=== PATIENT | male | born 1975 | race Caucasian/White ===

== ENCOUNTER 2016-07-05 19:35 | Emergency (ER) | payer BC ==
[~2016-07-05] VITALS: Ht 188 cm; Wt 97.5 kg
[2016-07-05 19:35] VITALS: BP 147/103; PULSE 79; RESP 18; TEMP 97.7; O2SAT 99
[2016-07-05 21:50] VITALS: BP 138/79; PULSE 75; RESP 19; TEMP 97.8; O2SAT 100
== END 2016-07-05 21:50 | disposition home or self-care (01) ==
LOC: SED 19:35
DX: S20.212A Contusion of left front wall of thorax, initial encounter (principal); K21.9 Gastro-esophageal reflux disease without esophagitis; W50.0XXA Accidental hit or strike by another person, initial encounter; Y93.41 Activity, dancing; Y92.89 Other specified places as the place of occurrence of the external cause; Y99.8 Other external cause status
CPT/HCPCS: 71100; 93005; 99284

== ENCOUNTER 2018-05-10 11:40 | Inpatient (IN) | payer BC, OTHER ==
[~2018-05-10] VITALS: Ht 188 cm; Wt 92.8 kg
--- NOTE | 2018-05-10 11:45 | NUR ---
Patient to ER bed 3 to gown for evaluation. Side rails up. Report given to Zachery HALLMAN.
[2018-05-10 11:47] VITALS: BP_SYST 142
--- NOTE | 2018-05-10 11:50 | NUR ---
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 Pt felt sharp shooting pain and fell down, denies head injury/KO. Pt was able to lay in bed the last 24 hours. Yesterday, pt took Flexeril and aleve with little to no relief. This morning, pt took (2) 5-325 [place], (2) 5 mg Flexeril, (1) 600mg ibuprofen which relieved the back spasms, but shooting pain is still present. Unable to sit up or stand without pain. No other injuries/complaints per pt/noted. Will continue to monitor.
--- NOTE | 2018-05-10 11:57 | NUR ---
ER Dr. Blackwood at bedside examining patient.
--- NOTE | 2018-05-10 12:25 | NUR ---
Pillow provided per pt request.
[2018-05-10] MEDS ORDERED: MORPHINE 4 MG/ML INJ. SYRINGE IM ONE (12:30)
--- NOTE | 2018-05-10 12:49 | NUR ---
Mell HALLMAN adminsitered with 4mg of Morphine to this patient.
--- NOTE | 2018-05-10 13:00 | NUR ---
patient sent to MRI in stable condition.
--- NOTE | 2018-05-10 14:20 | NUR ---
returned from MRI in stable conditions.
--- NOTE | 2018-05-10 14:20 | NUR ---
# 18 gauge angiocath placed to LAC. Use of asceptic technique. Opsite placed over site. Blood return noted. Blood for lab drawn from site. Flushed with 10 cc of normal saline. No evidence of infiltration noted. Patient tolerated well.
[2018-05-10] MEDS ORDERED: MORPHINE 4 MG/ML INJ. SYRINGE IVP ONE (15:00)
--- NOTE | 2018-05-10 15:51 | NUR ---
Patient will be admitted to [facility]. Admitted to Telemetry unit. Will go to room 16a. Belongings list completed. Summary report printed. Report will be given at bedside.
[2018-05-10] MEDS ORDERED: CYCL-10 PO (16:05)
[2018-05-10] MEDS ORDERED: AUG875 (16:05)
--- NOTE | 2018-05-10 16:30 | NUR ---
ADMISSION NOTE Received patient from ER via gurney. Patient admitted with diagnosis of SEVERE BACK PAIN. Patient is awake, alert, oriented X 4. Patient oriented to hospital room, call light, toileting, pain management and safety-teach back done. Patient informed that ANA will be RN nurse and that their room number is 116B. Personal belongings checked and Belongings List documented. Call light within reach.
[2018-05-10 16:39] VITALS: BP_SYST 129
[2018-05-10] MEDS ORDERED: PANT20TA2 PO (16:50)
[2018-05-10] MEDS: CARISOPRODOL 350 MG TABLET PO SCH ×2 (17:12→21:42)
--- NOTE | 2018-05-10 17:12 | NUR ---
PAIN MEDICATION SCHEDULED PAIN MEDICATION ADMINISTERED. PATIENT EDUCATED ON MEDICATION SIDE EFFECTS AND USE OF CALL LIGHT FOR ASSISTANCE. PATIENT VERBALIZED UNDERSTANDING. PATIENT IS VERBALIZED UNDERSTANDING. CALL LIGHT IN REACH, BED IN LOWEST POSITION, AND WILL CONTINUE TO MONITOR.
[2018-05-10] MEDS: HYDROcodone/ACETAMIN 10-325 MG TAB PO SCH (17:13)
--- NOTE | 2018-05-10 19:25 | NUR ---
Bedside report was obtained from day shift nurse. Pt was received lying in bed fully awake, alert and oriented x4. Pt is c/o lower back pain upon movement and requested IV Dilaudid. VSS. Saline lock in LAC is without any signs of infiltration. Fall and safety precautions are in place.
[2018-05-10] MEDS: HYDROmorphone 1 MG INJ. 1 MG/ML AMPUL IVP PRN (19:52)
--- NOTE | 2018-05-10 19:52 | NUR ---
Dilaudid 1mg was given IV per pt's request for c/o 10/10 low back pain. Pt was offered bed alarm, but pt declined. Call light is with pt and bed is in the lowest and locked positions. Pt was instructed to call for assistance as needed and before getting OOB and pt verbalized understanding. Pt stated he is not able to get OOB on his own.
[2018-05-10 20:00] VITALS: BP_SYST 127
--- NOTE | 2018-05-10 20:20 | NUR ---
Pt requested RN to obtain order for laxative from Dr. Zuniga. Pt stated he last had a bowel movement yesterday. Pt also requested for Dr. Zuniga to switch his consultation from Neurology to Neurosurgeon. Pt was informed Dr. Zuniga would be paged.
--- NOTE | 2018-05-10 20:40 | NUR ---
Paged Dr. Zuniga s/w Massiel.
--- NOTE | 2018-05-10 20:50 | NUR ---
Pt was seen and examined by Dr. Zuniga.
[2018-05-10] MEDS ORDERED: DOCUSATE SODIUM 100 MG CAPSULE PO ONE (21:15)
--- NOTE | 2018-05-10 21:30 | NUR ---
Pt was transferred from Telemetry to Med/Surg per Dr. Zuniga's order. Telemetry box was given to Impregnating Helper.
[2018-05-10] MEDS: AMOXICILLIN/CLAVULANATE POTASSIUM 875 MG TABLET PO SCH (21:43)
--- NOTE | 2018-05-10 21:43 | NUR ---
Pt requested for his scheduled Hayden to be given at 2300. No c/o pain at this time.
--- NOTE | 2018-05-10 23:00 | NUR ---
Pt is sleeping without any distress noted. Pt's is sleeping in a recliner at the bedside. Fall and safety precautions are in place.
[2018-05-10 23:30] LABS: BILIRUBIN,URINE NEGATIVE (NEGATIVE); BLOOD, URINE 2+ (NEGATIVE); CLARITY/URINE HAZY (CLEAR); COLOR,URINE YELLOW (YELLOW); GLUCOSE,URINE NEGATIVE (NEGATIVE); KETONES,URINE NEGATIVE (NEGATIVE); LEUKOCYTE ESTERASE ,URINE 3+ (NEGATIVE); NITRITE, URINE NEGATIVE (NEGATIVE); PH,URINE 6.5 (5.0-8.0); PROTEIN URINE 2+ (NEGATIVE); UROBILINOGEN,URINE 0.2 (0.2-1.0)
--- NOTE | 2018-05-10 23:32 | NUR ---
CONSULTATION PAGED/CALLED Reason for Consultation: Herniated Desk Person Who was Notified: Massiel Consulting Physician: Frannie Dennis (air sampling and monitoring DR. Millard) Clay Digger Specialty: Ordering Physician: Efrain
[2018-05-10 23:35] LABS: WBC,URINE 20-50 /HPF (0-3)
[2018-05-10 23:36] LABS: BACTERIA,URINE MODERATE /HPF (None Seen)
[2018-05-11] MEDS: HYDROcodone/ACETAMIN 10-325 MG TAB PO SCH ×5 (00:21→22:47)
--- NOTE | 2018-05-11 01:00 | NUR ---
Pt is sleeping without any respiratory distress noted. Fall and safety precautions are in place. Pt's is sleeping in a recliner at the bedside.
[2018-05-11 01:57] VITALS: BP_SYST 102
--- NOTE | 2018-05-11 02:51 | NUR ---
CONSULT: CONSULT CALLED FOR DR. JAVED GARY I SPOKE WITH ROSEANN JOHNSON REASON FOR CONSULT: SEVERE BACK PAIN REQUESTING CONSULT: DR. COWAN POLISHING PAD MOUNTER PHONE NUMBER: [phone]
--- NOTE | 2018-05-11 03:00 | NUR ---
Pt is sleeping without any respiratory distress noted. Fall and safety precautions in place.
[2018-05-11] MEDS: HYDROmorphone 1 MG INJ. 1 MG/ML AMPUL IVP PRN ×4 (05:24→23:46)
--- NOTE | 2018-05-11 05:24 | NUR ---
Dilaudid 1mg was given IV per pt's request for c/o 8/10 low back pain. Fall and safety precautions are in place.
--- NOTE | 2018-05-11 06:54 | NUR ---
Nutrition Update Blade Scale 18 noted. Pt admitted for severe back pain Diet: regular diet BMI: 26.3 kg/m2 RD to follow per nutrition care standards.
--- NOTE | 2018-05-11 07:15 | NUR ---
Bedside report given to day shift nurse.
[2018-05-11 07:31] LABS: ALBUMIN 3.3 g/dL (3.4-4.8); CALCIUM 8.8 mg/dL (8.4-11.0); CREATININE 1.06 mg/dL (0.55-1.30); POTASSIUM 3.5 mmol/L (3.5-5.1); TOTAL BILIRUBIN 0.5 mg/dL (0.0-1.0)
[2018-05-11 07:55] LABS: HEMATOCRIT 41.4 % (36-54); HEMOGLOBIN 14.1 g/dL (14.0-18.0); RED BLOOD CELL COUNT(AUTO) 4.67 MIL/uL (4.2-6.2); WHITE BLOOD COUNT (AUTO) 6.4 K/uL (4.8-10.8)
[2018-05-11 07:56] LABS: BASOPHILS # (AUTO) 0.1 K/uL (0.0-0.2); BASOPHILS % (AUTO) 0.8 % (0.0-2.0); EOSINOPHILS # (AUTO) 0.4 K/uL (0.0-0.4); EOSINOPHILS % (AUTO) 5.8 % (0.0-4.0); LYMPHOCYTES % (AUTO) 31.4 % (20.5-51.5); MEAN CORPUSCULAR HEMOGLOBIN 30 pg (27-31); MEAN CORPUSCULAR HGB CONC 34 % (32-36); MEAN CORPUSCULAR VOLUME 89 fL (79.0-98.0); MONOCYTES # (AUTO) 0.4 K/uL (0.0-1.0); MONOCYTES % (AUTO) 6.7 % (1.7-9.3); NEUTROPHILS # (AUTO) 3.5 K/uL (1.8-7.7); NEUTROPHILS % (AUTO) 55.3 % (40.0-70.0); PLATELET COUNT (AUTO) 214 K/uL (130-430); RED CELL DISTRIBUTION WIDTH 13.5 % (9.0-15.0)
--- NOTE | 2018-05-11 08:00 | NUR ---
AM note patient resting in bed, a/ox4, denies pain, assessment complete, educated patient on plan of care and call light system and to call for any assistance, he verbalized understanding, bed in lowest position, two side rails up, call light within reach, fall and aspiration precautions in place.
[2018-05-11] MEDS ORDERED: DOCUSATE SODIUM 100 MG CAPSULE PO SCH (09:00)
[2018-05-11] MEDS: PANTOPRAZOLE SODIUM 40 MG TAB PO SCH (09:04)
[2018-05-11] MEDS: CARISOPRODOL 350 MG TABLET PO SCH ×4 (09:04→22:47)
[2018-05-11] MEDS: AMOXICILLIN/CLAVULANATE POTASSIUM 875 MG TABLET PO SCH ×2 (09:04→22:48)
--- NOTE | 2018-05-11 09:05 | NUR ---
Medication/hygiene patient resting in bed, awake, states he has pain and will be okay with taking scheduled medication, educated patient on all morning medications uses and potential side effects, he verbalized understanding and tolerated well, provided with hygiene supplies, patient performed his own oral care, washed his face at this time, provided with fresh ice water, no other needs at this time, bed in lowest position, two side rails up, call light within reach, fall and aspiration precautions in place.
--- NOTE | 2018-05-11 10:39 | NUR ---
Pain medication patient resting in bed, awake, states increased pain level at this time, educated on PRN pain medication uses and potential side effects, he verbalized understanding, IV line is patent and infusing well, no other needs at this time, continuing to monitor, bed in lowest position, two side rails up, call light within reach, fall and aspiration precautions in place.
[2018-05-11 10:43] VITALS: BP_SYST 126
--- NOTE | 2018-05-11 11:23 | NUR ---
HAILEY Mgt: met with patient at bedside, will follow up with discharge needs possible PT outpatient versus Home Health. Patient Agreeable. Has no DME at home. and Father available to help. Neurosurgeon consult pending. Follow up as needed.
--- NOTE | 2018-05-11 11:45 | NUR ---
RN rounds patient resting in bed, visitor at bedside, patient states pain has improved, provided with ice water per his request, no other needs at this time, bed in lowest position, two side rails up, call light within reach, fall and aspiration precautions in place.
[2018-05-11 12:08] VITALS: BP_SYST 118
--- NOTE | 2018-05-11 12:58 | NUR ---
Dr. Zuniga rounds assessed and spoke with patient at bedside, will follow up with any new orders.
[2018-05-11] MEDS ORDERED: CHOLECALCIFEROL (VITAMIN D3) 2,000 UNIT TABLET PO ONE (13:00)
[2018-05-11] MEDS ORDERED: MAGNESIUM OXIDE 400 MG TABLET PO ONE (13:00)
[2018-05-11] MEDS ORDERED: BISACODYL 5 MG TABLET.DR (DULCOLAX) PO PRN (13:15)
[2018-05-11] MEDS: IBUPROFEN 600 MG TABLET PO SCH ×3 (13:22→22:48)
--- NOTE | 2018-05-11 13:22 | NUR ---
Medication patient resting in bed, awake, educated on all medications uses and potential side effects, he verbalized understanding and tolerated well, no other needs at this time, bed in lowest position, two side rails up, call light within reach, fall and aspiration precautions in place, continuing to monitor.
--- NOTE | 2018-05-11 15:30 | NUR ---
RN rounds patient resting in bed, awake, asking for urinal to be emptied, obliged, no other needs at this time, bed in lowest position, two side rails up, call light within reach, fall and aspiration precautions in place.
--- NOTE | 2018-05-11 16:41 | NUR ---
Endorse report to Re HALLMAN.
--- NOTE | 2018-05-11 16:42 | NUR ---
CONSULTATION FOLLOW-UP REASON FOR CONSULTATION:HERNIATED DISC WAS CONSULT CALLED?Y PERSON WHO WAS NOTIFIED:TANIKA CONSULTING PHYSICIAN:JAVED REYES COMPUTER EDUCATION PROFESSOR SPECIALTY:NEURO SURGREON COMPUTER EDUCATION PROFESSOR PHONE NUMBER:[phone] REQUESTING PHYSICIAN:ALEC ASHLEY
--- NOTE | 2018-05-11 18:50 | NUR ---
Note Received pt from previous RN Ej, for continuation of care. Agree with 08am physical assessment. Pt resting in bed with at bedside at this time. No SOB/resp distress noted. Pt's pain manageable at this time. IV in left AC intact and patent at this time. Pt was checked on q1' and PRN for needs and care. No needs noted. Pt sitting up in bed at 30' eating his dinner. No needs noted. Call light within reach.
[2018-05-11 19:57] VITALS: BP_SYST 130
--- NOTE | 2018-05-11 20:00 | NUR ---
Pt was received lying in bed fully awake, alert and oriented x4. No acute distress noted at this time. Saline lock in LAC is without any signs of infiltration. Fall and safety precautions are in place.
--- NOTE | 2018-05-11 22:15 | NUR ---
Pt attempted to have a bowel movement in bedpan, but stated it is uncomfortable. Pt attempted to ambulate to the bathroom with a walker after RN assisted pt out of bed, but pt stated it was difficult to move his legs. [place] was then [place] [facility] [place] had a large brownish formed stool. Pt was then assisted back to bed by RN and call light given to pt.
[2018-05-11] MEDS: DOCUSATE SODIUM 100 MG CAPSULE PO SCH (22:47)
[2018-05-11] MEDS: MAGNESIUM OXIDE 400 MG TABLET PO SCH (22:48)
--- NOTE | 2018-05-11 23:46 | NUR ---
Dilaudid 1mg was given IV for c/o 8/10 low back pain. Call light is with pt and bed is in the lowest and locked positions. Pt was instructed to call for assistance as needed and before getting OOB and pt verbalized understanding. Pt was offered bed alarm, but pt declined.
[2018-05-12] VITALS: BP_SYST 120
--- NOTE | 2018-05-12 01:00 | NUR ---
Pt is sleeping without any respiratory distress noted. Fall and safety precautions are in place.
--- NOTE | 2018-05-12 03:00 | NUR ---
Pt is sleeping without any respiratory distress noted. Fall and safety precautions in place.
--- NOTE | 2018-05-12 05:00 | NUR ---
Pt continues to sleep without any respiratory distress noted. Fall and safety precautions in place.
--- NOTE | 2018-05-12 07:00 | NUR ---
Pt is awake and resting comfortably in bed. Will endorse to day shift nurse.
[2018-05-12 07:50] VITALS: BP_SYST 142
--- NOTE | 2018-05-12 07:50 | NUR ---
INITIAL ROUNDS Received pt AAOx4, no s/s resp distress, c/o mild pain 04/24-noted pt stated he gets pain medications with AM medications. Plan of care for the day reviewed with pt-pt verbalized his understanding. Pt stated he is looking forward to working with physical therapy. Pain management, disease process, skin and safety discussed-teach back done. Call light within reach.
[2018-05-12] MEDS: HYDROcodone/ACETAMIN 10-325 MG TAB PO SCH ×3 (08:42→17:25)
[2018-05-12] MEDS: IBUPROFEN 600 MG TABLET PO SCH ×3 (08:43→17:25)
[2018-05-12] MEDS: CARISOPRODOL 350 MG TABLET PO SCH ×3 (08:44→17:25)
[2018-05-12] MEDS: PANTOPRAZOLE SODIUM 40 MG TAB PO SCH (08:45)
[2018-05-12] MEDS: DOCUSATE SODIUM 100 MG CAPSULE PO SCH (08:45)
[2018-05-12] MEDS: MAGNESIUM OXIDE 400 MG TABLET PO SCH (08:45)
[2018-05-12] MEDS: AMOXICILLIN/CLAVULANATE POTASSIUM 875 MG TABLET PO SCH (08:45)
[2018-05-12] MEDS ORDERED: CHOLECALCIFEROL (VITAMIN D3) 2,000 UNIT TABLET PO SCH (09:00)
[2018-05-12] MEDS: HYDROmorphone 1 MG INJ. 1 MG/ML AMPUL IVP PRN (10:40)
--- NOTE | 2018-05-12 10:43 | NUR ---
ROUNDS/PAIN Pt c/o pain to his back-pt given Dilaudid as ordered. Light turned down low, door closed to promote rest. Pt given fresh pitcher of water per request. Call light within reach.
--- NOTE | 2018-05-12 12:22 | NUR ---
ROUNDS/MED Pt resting quietly in bed with no s/s resp distress, no further c/o pain or discomfort. Needs met, call light within reach.
[2018-05-12 13:26] VITALS: BP_SYST 119
[2018-05-12 14:00] VITALS: BP_SYST 139
--- NOTE | 2018-05-12 14:43 | NUR ---
DANA/ Pt resting quietly in bed with no s/s resp distress, no c/o pain or discomfort. Pt did second round of physical therapy earlier, received order for back brace. Pt seen by Dr. Zuniga, new orders given. Call light within reach.
--- NOTE | 2018-05-12 14:45 | NUR ---
DC Planning: SPEEDYM to ari Chaudhary at [facility] # [phone] [id number] requesting auth for HH with PT and DMEs.
[2018-05-12 15:32] VITALS: BP_SYST 142
[2018-05-12] MEDS ORDERED: HYDR-4274 PO (16:36)
[2018-05-12] MEDS ORDERED: SOM350 PO (16:38)
[2018-05-12] MEDS ORDERED: IBUP-1969 PO (16:39)
[2018-05-12] MEDS ORDERED: DOCU250C14 PO (16:40)
--- NOTE | 2018-05-12 18:00 | NUR ---
PATIENT DISCHARGED Patient given medication reconciliation form and D/C instructions. Exit Care on Back Pain, [place], Soma and Motrin explained and provided. Patient verbalized his understanding. MD discussed with patient the results and treatment provided. Patient in stable condition, ID band removed. IV catheter removed, intact and dressing applied, no active bleeding. Rx of [place], Soma, Motrin, Protonix, Colace given to patient. Patient educated on pain management. All belongings sent with patient. Patient completed and signed the release of information form for release of his MRI. Patient left floor via wheelchair to private vehicle in no distress.
--- NOTE | 2018-05-13 09:00 | NUR ---
DC Planning: Late received dc order written on 05/12 at 1550 to arrange HH and DME. The pt.was d/c home prior to HH/DME set up.
--- NOTE | 2018-05-13 09:47 | NUR ---
Discharge Planning: DCP faxed pt to [facility] p [phone]) order for Home Health with PT and DME. DCP to follow up. Addendum: 05/13/18 at 1208 by Sonia Dorsey DP DONATO received a call from Magda at [facility] p [phone]), HH and DME are being arranged, Magda will call with assigned companies and numbers. DCP to follow up. Addendum: 05/13/18 at 1450 by Sonia Dorsey DP DCJuan spoke to Magda at [facility] p [phone]) HH arranged with [facility] (p [phone]) starting 4/1/19, DME for commode with [employer] ([phone])
--- NOTE | 2018-05-17 14:49 | NUR ---
Discharge Follow Up Phone Call AIRCRAFT MAINTENANCE TECHNICIAN phoned patient, , and left a voicemail message. Patient returned the call. Patient stated he was currently with the home health PT, who recommends that patient attend an outpatient PT facility. Patient requested Dr Zuniga's phone number so the PT could phone him to arrange for that order.AIRCRAFT MAINTENANCE TECHNICIAN provided the number. Patient stated that [facility] began services with an evaluation on 05/16/18. Patient filled his prescriptions and is taking his medication as directed. He does not have a PCP and plans to contact his insurance to obtain a preferred provider list.
== END 2018-05-12 18:00 | disposition home health service (06) | DRG 552 ==
LOC: SED 11:40 → STU 15:55 → SMU 21:43
PROVIDERS: ADMIT Internal Medicine; ATTEND Internal Medicine
DX: M51.26 Other intervertebral disc displacement, lumbar region (principal); S39.012A Strain of muscle, fascia and tendon of lower back, initial encounter; K21.9 Gastro-esophageal reflux disease without esophagitis; X58.XXXA Exposure to other specified factors, initial encounter; Y93.89 Activity, other specified; Y92.89 Other specified places as the place of occurrence of the external cause; Y99.8 Other external cause status
CPT/HCPCS: 36415; 72148; 80053; 81000-TC; 83735-TC; 85025; 90656; 96372; 97116-GP; 97530-GP; 99285; J1170; J2270

== ENCOUNTER 2018-06-02 08:00 | Outpatient (CLI) | payer OTHER ==
[~2018-06-02 08:00] MED LIST: AUG875; CYCL-10 PO; DOCU250C14 PO; HYDR-4274 PO; IBUP-1969 PO; PANT20TA2 PO; SOM350 PO
[2018-06-02 08:34] LABS: BASOPHILS # (AUTO) 0.1 K/uL (0.0-0.2); BASOPHILS % (AUTO) 1.2 % (0.0-2.0); EOSINOPHILS # (AUTO) 0.8 K/uL (0.0-0.4); EOSINOPHILS % (AUTO) 11.5 % (0.0-4.0); HEMATOCRIT 43.4 % (36-54); HEMOGLOBIN 14.5 g/dL (14.0-18.0); LYMPHOCYTES # (AUTO) 2.4 K/uL (1.0-5.5); LYMPHOCYTES % (AUTO) 32.9 % (20.5-51.5); MEAN CORPUSCULAR HEMOGLOBIN 30 pg (27-31); MEAN CORPUSCULAR HGB CONC 34 % (32-36); MEAN CORPUSCULAR VOLUME 88 fL (79.0-98.0); MONOCYTES # (AUTO) 0.5 K/uL (0.0-1.0); MONOCYTES % (AUTO) 6.3 % (1.7-9.3); NEUTROPHILS # (AUTO) 3.5 K/uL (1.8-7.7); NEUTROPHILS % (AUTO) 48.1 % (40.0-70.0); PLATELET COUNT (AUTO) 213 K/uL (130-430); RED BLOOD CELL COUNT(AUTO) 4.91 MIL/uL (4.2-6.2); RED CELL DISTRIBUTION WIDTH 13.6 % (9.0-15.0); WHITE BLOOD COUNT (AUTO) 7.2 K/uL (4.8-10.8)
[2018-06-02 08:39] LABS: BILIRUBIN,URINE NEGATIVE (NEGATIVE); BLOOD, URINE NEGATIVE (NEGATIVE); CLARITY/URINE CLEAR (CLEAR); COLOR,URINE YELLOW (YELLOW); GLUCOSE,URINE NEGATIVE (NEGATIVE); KETONES,URINE NEGATIVE (NEGATIVE); LEUKOCYTE ESTERASE ,URINE NEGATIVE (NEGATIVE); NITRITE, URINE NEGATIVE (NEGATIVE); PROTEIN URINE NEGATIVE (NEGATIVE); UROBILINOGEN,URINE 0.2 (0.2-1.0)
[2018-06-02 09:05] LABS: ALBUMIN 3.6 g/dL (3.4-4.8); CALCIUM 9.2 mg/dL (8.4-11.0); CREATININE 0.97 mg/dL (0.55-1.30); THYROID STIMULATING HORMONE 1.57 uIu/mL (0.34-4.82); TOTAL BILIRUBIN 0.7 mg/dL (0.0-1.0)
[2018-06-02 09:18] LABS: ERYTHROCYTE SEDIMENTATION RATE 7 MM/HR (0-15)
[2018-06-03 08:25] LABS: PROSTATE SPECIFIC AG 0.4 ng/mL (0.0-4.0)
[2018-06-04 07:45] LABS: HEMOGLOBIN A1C 5.9 % (4.8-5.6)
== END 2018-06-02 21:33 | disposition home or self-care (01) ==
LOC: SUS 08:00
PROVIDERS: ATTEND Internal Medicine
DX: Z00.00 Encounter for general adult medical examination without abnormal findings (principal); D64.9 Anemia, unspecified; R73.9 Hyperglycemia, unspecified; E78.5 Hyperlipidemia, unspecified; E55.9 Vitamin D deficiency, unspecified; N39.0 Urinary tract infection, site not specified; R35.1 Nocturia; E07.9 Disorder of thyroid, unspecified
CPT/HCPCS: 36415; 76700-TC; 80053; 80061; 81003; 82306; 82607; 83036; 84153; 84443-TC; 84550-TC; 85025; 85651-TC; 87086